=== PATIENT | female | born 1945 | race Caucasian/White ===

== ENCOUNTER 2017-08-06 10:27 | Emergency (ER) | payer OTHER ==
[~2017-08-06] VITALS: Ht 165.1 cm; Wt 80.7 kg
[~2017-08-06 10:27] MED LIST: NORFLEX100MG PO; SYNTHROID75 MCG; ULTRACET PO
[2017-08-06] MEDS ORDERED: AVAPRO150 MG (10:45)
== END 2017-08-06 23:26 | disposition home or self-care (01) ==
LOC: ER 10:27
DX: J45.998 Other asthma (principal); K57.32 Diverticulitis of large intestine without perforation or abscess without bleeding; J11.1 Influenza due to unidentified influenza virus with other respiratory manifestations

== ENCOUNTER → 2018-10-18 | Emergency (ER) | payer OTHER ==
[~2018-10-18] VITALS: Ht 165.1 cm; Wt 80.7 kg
[~2018-10-18] MED LIST changes: +AVAPRO150 MG; +AVAPRO75 MG; +CIPRO500 MG PO; +FLAGYL500MG PO; +INTESTINEX680 M1 PO
== END | disposition home or self-care (01) ==
LOC: ER 08:45
DX: K57.32 Diverticulitis of large intestine without perforation or abscess without bleeding (principal); R10.32 Left lower quadrant pain